=== PATIENT | female | born 1950 | race Two or more races ===

== ENCOUNTER 2021-09-19 13:33 | Inpatient (IN) | payer MEDICARE, MEDICAID ==
[~2021-09-19] VITALS: Ht 162.6 cm; Wt 91.3 kg
[2021-09-19] MEDS ORDERED: cloNIDine HCL 0.1 MG TAB PO ONE (13:45)
[2021-09-19 14:45] LABS: Basophils # (auto) 0.1 10 ^3/uL (0-0.2); Basophils % (auto) 1.2 % (0.0-2.0); Eosinophils # (auto) 0.1 10 ^3/uL (0-0.8); Eosinophils % (auto) 1.4 % (0.0-7.0); Hematocrit 40.3 % (36.0-46.0); Hemoglobin 13.9 g/dL (12.2-16.2); Lymphocytes # (auto) 1.7 10 ^3/uL (0.4-5.4); Lymphocytes % (auto) 21.9 % (10.0-50.0); Mean Corpuscular Hgb Conc. 34.6 g/dL (32.0-36.0); Mean Corpuscular Volume 86.6 fL (80.0-100.0); Monocytes # (auto) 0.4 10 ^3/uL (0-1.3); Monocytes % (auto) 5.3 % (0.0-12.0); Neutrophils # (auto) 5.5 10 ^3/uL (1.6-8.6); Neutrophils % (auto) 70.2 % (37.0-80.0); Red Blood Cells 4.65 10^6/uL (4.0-5.20); Red Cell Distribution Width 13.3 % (11.8-14.3); White Blood Cell 7.8 10^3/uL (4.4-10.8)
[2021-09-19 15:02] LABS: Albumin 2.7 g/dL (3.4-5.0); Calcium 8.8 mg/dL (8.5-10.1); Magnesium 2.2 mg/dL (1.6-2.6); Potassium 3.9 mmol/L (3.5-5.1)
[2021-09-19 15:05] LABS: BUN/Creatinine Ratio 17.8; Bilirubin, Total 0.4 mg/dL (0.2-1.0); Total Protein 6.9 g/dL (6.4-8.2)
[2021-09-19 15:41] LABS: Urine Bacteria NONE SEEN /hpf (None Seen); Urine Blood TRACE /uL (Negative); Urine Specific Gravity 1.005 (1.001-1.035); Urine WBC <1 /hpf (0 - 5)
[2021-09-19] MEDS ORDERED: HYDROcodone-ACET 5/325MG TAB PO PRN (22:30)
[2021-09-19] MEDS ORDERED: DEXTROSE (50%) 50ML SYRG IV PRN (22:30)
[2021-09-19] MEDS ORDERED: amLODIPine BESYLATE 5 MG TAB PO ONE ×2 (22:30)
[2021-09-19] MEDS ORDERED: ACETAMINOPHEN 325 MG TAB PO PRN (22:30)
[2021-09-19] MEDS ORDERED: AZITHROMYCIN 500MG/ 250ML 250 ML IV ONE (22:30)
[2021-09-19] MEDS ORDERED: DOCUSATE SOD 100 MG CAP PO PRN (22:30)
[2021-09-19] MEDS ORDERED: ONDANSETRON HCL 4 MG/2 ML VIAL IV PRN (22:30)
[2021-09-19] MEDS ORDERED: MORPHINE SULFATE INJ 2 MG/ml SYRG IV PRN (23:00)
[2021-09-19] MEDS ORDERED: NITROGLYCERIN 0.4 MG SL TAB SL PRN (23:00)
[2021-09-19] MEDS: hydrALAZINE HCL 20 MG/ML VL IV PRN (23:16)
[2021-09-20] MEDS: SODIUM CHLOR 0.9% PF (SALINE LOCK) 10ML VIAL/SYR IV SCH ×3 (06:14→22:10)
[2021-09-20] MEDS: ACCU-CHEK COMFORT CURVE STRIP VI SCH ×4 (06:54→22:12)
[2021-09-20] MEDS: InsuLIN REG 1unit/0.01ml Soln (100units/ml) SC SCH ×4 (06:55→22:08)
[2021-09-20 07:15] LABS: Basophils # (auto) 0.1 10 ^3/uL (0-0.2); Basophils % (auto) 0.8 % (0.0-2.0); Eosinophils # (auto) 0.1 10 ^3/uL (0-0.8); Eosinophils % (auto) 1.8 % (0.0-7.0); Hematocrit 39.1 % (36.0-46.0); Hemoglobin 13.5 g/dL (12.2-16.2); Lymphocytes # (auto) 1.6 10 ^3/uL (0.4-5.4); Lymphocytes % (auto) 25.7 % (10.0-50.0); Mean Corpuscular Hemoglobin 30.1 pg (28.0-32.0); Mean Corpuscular Hgb Conc. 34.5 g/dL (32.0-36.0); Mean Corpuscular Volume 87.3 fL (80.0-100.0); Monocytes # (auto) 0.4 10 ^3/uL (0-1.3); Monocytes % (auto) 6.8 % (0.0-12.0); Neutrophils # (auto) 4.2 10 ^3/uL (1.6-8.6); Neutrophils % (auto) 64.9 % (37.0-80.0); Red Blood Cells 4.48 10^6/uL (4.0-5.20); Red Cell Distribution Width 13.2 % (11.8-14.3); White Blood Cell 6.4 10^3/uL (4.4-10.8)
[2021-09-20 07:27] LABS: Potassium 3.6 mmol/L (3.5-5.1)
[2021-09-20 07:38] LABS: Albumin 2.4 g/dL (3.4-5.0); BUN/Creatinine Ratio 23.7; Bilirubin, Total 0.6 mg/dL (0.2-1.0); Calcium 9.2 mg/dL (8.5-10.1)
[2021-09-20] MEDS ORDERED: ATENOLOL 50 MG TAB PO ONE (09:30)
[2021-09-20] MEDS ORDERED: IOHEXOL 350 MG/ML 100ML IJ ONE (09:39)
[2021-09-20] MEDS: hydrALAZINE HCL 20 MG/ML VL IV PRN (09:52)
[2021-09-20] MEDS: INSULIN LANTUS (GLARGINE) 1 /0.01ml (100units/ml) SC SCH ×2 (10:00→22:09)
[2021-09-20] MEDS ORDERED: INSULIN LANTUS (GLARGINE) 1 /0.01ml (100units/ml) SC SCH (10:00)
[2021-09-20 10:20] LABS: INR 0.99 (0.9-1.15); Partial Thromboplastin Time 27.1 sec (23.6-33.0)
[2021-09-20] MEDS: CLOPIDOGREL BISULFATE 75 MG TAB PO SCH (11:17)
[2021-09-20] MEDS: ASPirin 81 mg TAB PO SCH (11:17)
[2021-09-20] MEDS: LISINOPRIL 5 MG TAB PO SCH (11:18)
[2021-09-20] MEDS: ENOXAPARIN SOD 40 MG/0.4 ML SYRINGE SC SCH (11:18)
[2021-09-20] MEDS: amLODIPine BESYLATE 5 MG TAB PO SCH (11:19)
[2021-09-20] MEDS ORDERED: LORazepam 2MG/ML-1ML VIAL IV PRN (12:00)
[2021-09-20] MEDS: hydrALAZINE HCL 10 MG TAB PO SCH ×3 (13:05→23:24)
[2021-09-20 16:47] VITALS: BP 151/72
[2021-09-20 17:07] VITALS: BP 125/47
[2021-09-20] MEDS ORDERED: GLIP5TAB12 PO (17:34)
[2021-09-20] MEDS ORDERED: AZITHROMYCIN 500MG/ 250ML 250 ML IV SCH (21:00)
[2021-09-20 22:00] VITALS: BP 133/65
[2021-09-20] MEDS: ATORVASTATIN 20 MG TAB PO SCH (22:10)
[2021-09-21 05:19] VITALS: BP 106/46
[2021-09-21] MEDS: hydrALAZINE HCL 10 MG TAB PO SCH ×4 (06:00→23:05)
[2021-09-21 06:22] LABS: Potassium 3.6 mmol/L (3.5-5.1)
[2021-09-21 06:24] LABS: BUN/Creatinine Ratio 24.2
[2021-09-21] MEDS: SODIUM CHLOR 0.9% PF (SALINE LOCK) 10ML VIAL/SYR IV SCH ×3 (06:40→21:59)
[2021-09-21] MEDS: InsuLIN REG 1unit/0.01ml Soln (100units/ml) SC SCH ×4 (06:41→22:01)
[2021-09-21] MEDS: ACCU-CHEK COMFORT CURVE STRIP VI SCH ×4 (06:41→22:12)
[2021-09-21 09:00] VITALS: BP 128/56
[2021-09-21] MEDS: ENOXAPARIN SOD 40 MG/0.4 ML SYRINGE SC SCH (09:38)
[2021-09-21] MEDS: CLOPIDOGREL BISULFATE 75 MG TAB PO SCH (09:38)
[2021-09-21] MEDS: ASPirin 81 mg TAB PO SCH (09:38)
[2021-09-21] MEDS: LISINOPRIL 5 MG TAB PO SCH (09:39)
[2021-09-21] MEDS: amLODIPine BESYLATE 5 MG TAB PO SCH (09:39)
[2021-09-21] MEDS: INSULIN LANTUS (GLARGINE) 1 /0.01ml (100units/ml) SC SCH ×2 (09:43→22:01)
[2021-09-21 12:43] VITALS: BP 162/74
[2021-09-21] MEDS ORDERED: ATO40T PO (14:12)
[2021-09-21] MEDS ORDERED: ATEN50TA80 PO (14:12)
[2021-09-21] MEDS ORDERED: AMLO-489 PO (14:12)
[2021-09-21] MEDS ORDERED: diphenhdrAMINE HCL 25 MG CAP PO ONE (14:45)
[2021-09-21] MEDS ORDERED: SODIUM CHLORIDE 0.9% 1,000 ML IV ONE (15:15)
[2021-09-21 22:00] VITALS: BP 136/72
[2021-09-21] MEDS: ATORVASTATIN 20 MG TAB PO SCH (22:13)
[2021-09-22 05:00] VITALS: BP 172/69
[2021-09-22] MEDS: hydrALAZINE HCL 20 MG/ML VL IV PRN (05:12)
[2021-09-22 05:42] LABS: BUN/Creatinine Ratio 27.1; Calcium 9.1 mg/dL (8.5-10.1)
[2021-09-22] MEDS: SODIUM CHLOR 0.9% PF (SALINE LOCK) 10ML VIAL/SYR IV SCH ×3 (06:15→22:14)
[2021-09-22] MEDS: hydrALAZINE HCL 10 MG TAB PO SCH ×3 (06:16→18:02)
[2021-09-22] MEDS: InsuLIN REG 1unit/0.01ml Soln (100units/ml) SC SCH ×4 (06:16→22:14)
[2021-09-22] MEDS: ACCU-CHEK COMFORT CURVE STRIP VI SCH ×4 (06:16→22:09)
[2021-09-22 09:00] VITALS: BP 154/66
[2021-09-22] MEDS: LISINOPRIL 5 MG TAB PO SCH (09:59)
[2021-09-22] MEDS: CLOPIDOGREL BISULFATE 75 MG TAB PO SCH (09:59)
[2021-09-22] MEDS: amLODIPine BESYLATE 5 MG TAB PO SCH (09:59)
[2021-09-22] MEDS: ASPirin 81 mg TAB PO SCH (09:59)
[2021-09-22] MEDS: ENOXAPARIN SOD 40 MG/0.4 ML SYRINGE SC SCH (10:00)
[2021-09-22] MEDS: INSULIN LANTUS (GLARGINE) 1 /0.01ml (100units/ml) SC SCH ×2 (10:32→22:15)
[2021-09-22] MEDS ORDERED: SODIUM CHLORIDE 0.9% 1,000 ML IV ONE (12:30)
[2021-09-22 13:00] VITALS: BP 163/59
[2021-09-22 13:20] VITALS: BP 148/84
[2021-09-22 17:00] VITALS: BP 160/68
[2021-09-22 22:00] VITALS: BP 121/70
[2021-09-22] MEDS: ATORVASTATIN 20 MG TAB PO SCH (22:14)
[2021-09-23] VITALS (15 sets, daily range): BP systolic 110–175; BP diastolic 48–86
[2021-09-23] MEDS: hydrALAZINE HCL 10 MG TAB PO SCH ×4 (01:27→17:39)
[2021-09-23] MEDS: SODIUM CHLOR 0.9% PF (SALINE LOCK) 10ML VIAL/SYR IV SCH ×2 (06:00→16:37)
[2021-09-23 06:03] LABS: Urine Bacteria NONE SEEN /hpf (None Seen); Urine Blood Negative /uL (Negative); Urine Hyaline Cast FEW /lpf (0 - 2); Urine Specific Gravity 1.008 (1.001-1.035); Urine WBC 1 /hpf (0 - 5)
[2021-09-23] MEDS: ACCU-CHEK COMFORT CURVE STRIP VI SCH ×3 (06:35→17:43)
[2021-09-23] MEDS: InsuLIN REG 1unit/0.01ml Soln (100units/ml) SC SCH ×3 (06:35→17:00)
[2021-09-23] MEDS: hydrALAZINE HCL 20 MG/ML VL IV PRN ×2 (08:29→17:39)
[2021-09-23] MEDS: INSULIN LANTUS (GLARGINE) 1 /0.01ml (100units/ml) SC SCH (10:00)
[2021-09-23] MEDS ORDERED: LISINOPRIL 5 MG TAB PO SCH (10:00)
[2021-09-23] MEDS: ENOXAPARIN SOD 40 MG/0.4 ML SYRINGE SC SCH (10:00)
[2021-09-23] MEDS ORDERED: diphenhdrAMINE HCL 50 MG/1 ML VL IV ONE (10:30)
[2021-09-23] MEDS ORDERED: LIDOCAINE VISCOUS 2% 15ML UD PO ONE (10:30)
[2021-09-23] MEDS ORDERED: MIDAZOLAM HCL 5 MG/ML-1ML VIAL IV ONE (10:30)
[2021-09-23] MEDS ORDERED: fentaNYL CITRATE 100 MCG/2 ML VL IV ONE (10:30)
[2021-09-23] MEDS ORDERED: diphenhdrAMINE HCL 50 MG/1 ML VL ONE (10:34)
[2021-09-23] MEDS ORDERED: fentaNYL CITRATE 100 MCG/2 ML VL ONE (10:34)
[2021-09-23] MEDS ORDERED: LIDOCAINE VISCOUS 2% 15ML UD ONE (10:34)
[2021-09-23] MEDS ORDERED: MIDAZOLAM HCL 2MG/2ML 2ml VIAL (1mg/ml) ONE (10:35)
[2021-09-23 11:57] LABS: Folate (Folic Acid) 21.97 ng/mL (5.38-24)
[2021-09-23] MEDS: CLOPIDOGREL BISULFATE 75 MG TAB PO SCH (11:59)
[2021-09-23] MEDS: ASPirin 81 mg TAB PO SCH (11:59)
[2021-09-23] MEDS: amLODIPine BESYLATE 5 MG TAB PO SCH (12:01)
== END 2021-09-23 18:59 | disposition home health service (06) | DRG 64 ==
LOC: ER 13:33 → TELE 22:55 → TELE-WESTW 09-20 16:18
PROVIDERS: ADMIT Nurse Practitioner Family; ATTEND Internal Medicine
PROC: B24BZZ4 Ultrasonography of Heart with Aorta, Transesophageal (ICD-10-PCS; principal; 2021-09-23)
DX: I63.9 Cerebral infarction, unspecified (principal); J18.9 Pneumonia, unspecified organism; N17.0 Acute kidney failure with tubular necrosis; E44.0 Moderate protein-calorie malnutrition; I16.0 Hypertensive urgency; E66.01 Morbid (severe) obesity due to excess calories; E11.65 Type 2 diabetes mellitus with hyperglycemia; E78.1 Pure hyperglyceridemia; E78.5 Hyperlipidemia, unspecified; Z20.822 Contact with and (suspected) exposure to COVID-19; R26.9 Unspecified abnormalities of gait and mobility; I10 Essential (primary) hypertension; Z68.34 Body mass index [BMI] 34.0-34.9, adult; Z79.02 Long term (current) use of antithrombotics/antiplatelets; Z79.82 Long term (current) use of aspirin; Z79.899 Other long term (current) drug therapy; Z83.3 Family history of diabetes mellitus; Z91.19 Patient's noncompliance with other medical treatment and regimen; Z91.81 History of falling; Z88.8 Allergy status to other drugs, medicaments and biological substances; Z71.3 Dietary counseling and surveillance
CPT/HCPCS: 36415; 70450; 70496; 70498; 70551; 71045; 80048; 80053; 80061; 81001; 82043; 82306; 82607; 82746; 82962; 83036; 83735; 84443; 84484; 85025; 85610; 85730; 86850; 86900; 86901; 93005; 93306; 93312; 97110; 97116; 97163; 97530; 99152; G0378; J1815; J2250

== ENCOUNTER → 2022-02-10 | Outpatient (CLI) | payer MEDICARE, MEDICAID ==
[~2022-02-10] MED LIST: AMLO-489 PO; ATEN50TA80 PO; ATO40T PO; GLIP5TAB12 PO
[2022-02-10 09:46] LABS: Basophils # (auto) 0.1 10 ^3/uL (0-0.2); Basophils % (auto) 0.6 % (0.0-2.0); Eosinophils # (auto) 0.2 10 ^3/uL (0-0.8); Eosinophils % (auto) 2.2 % (0.0-7.0); Hematocrit 37.5 % (36.0-46.0); Hemoglobin 12.8 g/dL (12.2-16.2); Mean Corpuscular Hemoglobin 29.8 pg (28.0-32.0); Mean Corpuscular Hgb Conc. 34.1 g/dL (32.0-36.0); Mean Corpuscular Volume 87.5 fL (80.0-100.0); Monocytes # (auto) 0.5 10 ^3/uL (0-1.3); Monocytes % (auto) 5.5 % (0.0-12.0); Neutrophils # (auto) 6.5 10 ^3/uL (1.6-8.6); Neutrophils % (auto) 69.7 % (37.0-80.0); Red Blood Cells 4.28 10^6/uL (4.0-5.20); Red Cell Distribution Width 13.1 % (11.8-14.3); White Blood Cell 9.3 10^3/uL (4.4-10.8)
[2022-02-10 10:16] LABS: Urine Bacteria NONE SEEN /hpf (None Seen); Urine Blood TRACE /uL (Negative); Urine Specific Gravity 1.006 (1.001-1.035); Urine WBC 1 /hpf (0 - 5)
[2022-02-10 10:27] LABS: Potassium 4.2 mmol/L (3.5-5.1)
[2022-02-10 10:43] LABS: Albumin 3.7 g/dL (3.4-5.0); BUN/Creatinine Ratio 26.9; Bilirubin, Total 0.6 mg/dL (0.2-1.0); Calcium 9.5 mg/dL (8.5-10.1); Total Protein 7.3 g/dL (6.4-8.2)
== END | disposition home or self-care (01) ==
LOC: LAB 09:21
PROVIDERS: ATTEND Nurse Practitioner
DX: I10 Essential (primary) hypertension (principal); E78.5 Hyperlipidemia, unspecified; E46 Unspecified protein-calorie malnutrition; Z79.899 Other long term (current) drug therapy
CPT/HCPCS: 36415; 80053; 80061; 81001; 82043; 83036; 85025

== ENCOUNTER → 2022-12-21 | Outpatient (CLI) | payer MEDICARE, MEDICAID ==
[~2022-12-21] MED LIST changes: -AMLO-489 PO; +AMLO1TAB22 PO
[2022-12-21 10:00] LABS: Basophils # (auto) 0.1 10 ^3/uL (0-0.2); Basophils % (auto) 0.9 % (0.0-2.0); Eosinophils # (auto) 0.2 10 ^3/uL (0-0.8); Eosinophils % (auto) 2.4 % (0.0-7.0); Hematocrit 38.7 % (36.0-46.0); Hemoglobin 12.9 g/dL (12.2-16.2); Lymphocytes % (auto) 21.6 % (10.0-50.0); Mean Corpuscular Hemoglobin 28.7 pg (28.0-32.0); Mean Corpuscular Hgb Conc. 33.4 g/dL (32.0-36.0); Mean Corpuscular Volume 86.1 fL (80.0-100.0); Monocytes # (auto) 0.5 10 ^3/uL (0-1.3); Monocytes % (auto) 5.4 % (0.0-12.0); Neutrophils # (auto) 6.5 10 ^3/uL (1.6-8.6); Neutrophils % (auto) 69.7 % (37.0-80.0); Nucleated Red Blood Cells % 0.1 %; Red Blood Cells 4.49 10^6/uL (4.0-5.20); Red Cell Distribution Width 13.8 % (11.8-14.3); White Blood Cell 9.4 10^3/uL (4.4-10.8)
[2022-12-21 10:16] LABS: Urine Bacteria NONE SEEN /hpf (None Seen); Urine Blood Negative /uL (Negative); Urine Clarity Clear (Clear); Urine Protein, UAD 2+ (Negative); Urine Specific Gravity 1.007 (1.001-1.035); Urine Urobilinogen Normal (Negative); Urine WBC 2 /hpf (0 - 5); Urine pH 5.5 (5.0-8.0)
[2022-12-21 10:17] LABS: Urine Color Straw (Yellow)
[2022-12-21 11:16] LABS: Alanine Aminotransferase 10 U/L (7-40); Alkaline Phosphatase 92 U/L (46-116); Anion Gap 8.2 (5-15); BUN/Creatinine Ratio 13.3 (10.0-20.0); Blood Urea Nitrogen 14 mg/dL (9-23); Calcium 9.4 mg/dL (8.5-10.1); Carbon Dioxide 25.8 mmol/L (20-30); Chloride 104 mmol/L (98-107); Glucose 106 mg/dL (74-106); LDL Cholesterol 63 mg/dL (< 100); Potassium 3.6 mmol/L (3.5-5.1); Sodium 138 mmol/L (136-145); Triglycerides 177 mg/dL (< 150)
[2022-12-21 11:17] LABS: Albumin 4.5 g/dL (3.2-4.8); Aspartate Aminotransferase < 8 U/L (13-40); Bilirubin, Total 0.5 mg/dL (0.2-1.0); Cholesterol 126 mg/dL (< 200); HDL Cholesterol 39 mg/dL (40-59); Total Protein 7.1 g/dL (5.7-8.2)
== END | disposition home or self-care (01) ==
LOC: LAB 09:40
PROVIDERS: ATTEND Nurse Practitioner
DX: E11.9 Type 2 diabetes mellitus without complications (principal); I10 Essential (primary) hypertension; E78.5 Hyperlipidemia, unspecified
CPT/HCPCS: 36415; 80053; 80061; 81001; 83036; 85025